=== PATIENT | female | born 1955 | race Caucasian/White ===

== ENCOUNTER 2017-11-07 17:08 | Emergency (ER) | END 2017-11-07 20:20 | disposition home or self-care (01) ==

== ENCOUNTER 2018-01-02 22:05 | Observation (INO) | END 2018-01-04 13:24 | disposition home or self-care (01) ==

== ENCOUNTER 2019-01-13 09:09 | Emergency (ER) | payer MEDICAID ==
[~2019-01-13] VITALS: Wt 78.0 kg
[~2019-01-13 09:09] MED LIST: ASPI-535 PO; ATOR-2 PO; LISI-471 PO; NITR0.4T32 SL; OMEG-135 PO; OMEG-158 PO; TURM1CAP2 PO
[2019-01-13 09:12] VITALS: Wt 78.0 kg
--- NOTE | 2019-01-13 11:04 | ERD ---
ER Documentation Chief Complaint Chief Complaint left breast rad back pain x 2 weeks. pain when touch breast HPI 63-year-old female presents the emergency department complaining of left-sided chest pain. Patient states that she has a recent history of nonspecific chest pains. She was admitted to our hospital recently where diagnostic work-up was completed including a normal echocardiogram. Patient presents the emergency department today complaining of approximately 2 weeks of a nonspecific left-sided breast and chest discomfort which radiates to her back. Its associate with tingling in her left index finger. She reports no palpitations or shortness of breath, no fevers, chills, sputum production or hemoptysis. Her pain is nonspecific and described as mild to moderate. ROS All systems reviewed and are negative except as per history of present illness. Medications Home Meds Reported Medications [place]-3 Fatty Acids/Fish Oil (Fish Oil 1,000 mg Capsule) 1 Each Capsule, 1 EACH PO DAILY, CAP 01/13/19 Lisinopril* (Lisinopril*) 20 Mg Tablet, 20 MG PO DAILY, #30 TAB 01/13/19 Atorvastatin* (Atorvastatin*) 80 Mg Tablet, 80 MG PO QHS, #30 TAB 01/13/19 Discontinued Reported Medications Turmeric/Turmeric Root Extract (Turmeric 500 mg Capsule) 1 Each Capsule, 1 EACH PO, CAP 01/02/18 [place]-3/Dha/Epa/Fish Oil (FISH OIL 1,000 MG SOFTGEL) 1 Each Capsule, 1 EACH PO, CAP 01/02/18 Atorvastatin* (Atorvastatin*) 80 Mg Tablet, 80 MG PO QHS, #30 TAB 01/02/18 Aspirin Ec (Aspir 81) 81 Mg Tablet.dr, 81 MG PO DAILY, #30 TAB 01/02/18 Lisinopril* (Lisinopril*) 20 Mg Tablet, 20 MG PO DAILY, #30 TAB 01/02/18 Discontinued Scripts Nitroglycerin* (Nitroglycerin* SL) 0.4 Mg Tab.subl, 1 TAB SL .Q5M UP TO 3 DOSES PRN for CHEST PAIN for 30 Days, #90 TAB 3 Refills Prov:ANTONIA JOHNSON MD 01/04/18 Allergies Allergies: Coded Allergies: No Known Allergy (Unverified , 01/13/19) PMhx/Soc History of Surgery: Yes (HYSTERECTOMY) Anesthesia Reaction: No Hx Neurological Disorder: No Hx Respiratory Disorders: No Hx Cardiac Disorders: Yes (HIGH CHOLESTEROL;HTN;) Hx Psychiatric Problems: No Hx Miscellaneous Medical Probl: No Hx Alcohol Use: No Hx Substance Use: No Hx Tobacco Use: No Smoking Status: Never smoker FmHx Noncontributory for chief complaint Physical Exam Vitals Vital Signs Date Temp Pulse Resp B/P (MAP) Pulse Ox O2 O2 Flow FiO2 Time Delivery Rate 01/13/19 98.1 69 18 171/89 99 09:12 (116) Physical Exam GENERAL: The patient is well developed and appropriate for usual state of health in no apparent distress HEENT: Pupils equal, round, and reactive to light. EOMI. There is no scleral icterus. NECK: C-spine is soft and supple, there is no meningismus. There is no cervical lymphadenopathy. LUNGS: Clear to auscultation bilaterally. There are no rales, wheezes or rhonchi. HEART: Regular rate and rhythm, no murmurs, clicks, rubs or gallops. ABDOMEN: Soft, non-tender, non-distended. There are bowel sounds in all four quadrants. No rebound or guarding. EXTREMITIES: There is no peripheral cyanosis or edema. No focal swelling or erythema. NEURO: The patient moves all four extremities with 5/5 strength. Cranial nerves II - XII are intact. Normal gait. Alert and oriented SKIN: There is no apparent rash or petechiae. HEME/LYMPHATIC: There is no evidence of excessive bruising or lymphedema. PSYCHIATRIC: The patient does not appear anxious or depressed. Result Diagram: 01/13/19 1017 01/13/19 1017 Results 24 hrs Laboratory Tests Test 01/13/19 10:17 White Blood Count 6.7 10^3/ul Red Blood Count 3.75 10^6/ul Hemoglobin 12.6 g/dl Hematocrit 36.5 % Mean Corpuscular Volume 97.3 fl Mean Corpuscular Hemoglobin 33.6 pg Mean Corpuscular Hemoglobin Concent 34.5 g/dl Red Cell Distribution Width 12.1 % Platelet Count 274 10^3/UL Mean Platelet Volume 9.1 fl Immature Granulocytes % 0.300 % Neutrophils % 54.9 % Lymphocytes % 32.7 % Monocytes % 9.9 % Eosinophils % 1.6 % Basophils % 0.6 % Nucleated Red Blood Cells % 0.0 /100WBC Immature Granulocytes # 0.020 10^3/ul Neutrophils # 3.7 10^3/ul Lymphocytes # 2.2 10^3/ul Monocytes # 0.7 10^3/ul Eosinophils # 0.1 10^3/ul Basophils # 0.0 10^3/ul Nucleated Red Blood Cells # 0.0 10^3/ul Sodium Level 139 mmol/L Potassium Level 3.9 mmol/L Chloride Level 103 mmol/L Carbon Dioxide Level 30 mmol/L Anion Gap 6 Blood Urea Nitrogen 13 mg/dl Creatinine 0.57 mg/dl Est Glomerular Filtrat Rate mL/min > 60 mL/min Glucose Level 104 mg/dl Calcium Level 9.7 mg/dl Troponin I < 0.012 ng/ml Procedures/MDM Patient was taken to a room, seen and evaluated. Comfort measures were initiated. Diagnostic tests were ordered and reviewed. 3 LEAD RHYTHM STRIP: Normal sinus rhythm without ectopy EK lead EKG reviewed by myself: Normal Sinus Rhythm Normal [place] and intervals No ST elevation, depression, or T wave inversion Impression: Normal EKG REEVALUATION: 1100: Diagnostic tests were appreciated. Patient remained comfo rtable and stable appearing. MEDICAL DECISION MAKING: Patient presents with chest pain of uncertain etiology. Differential diagnosis considered includes acute myocardial infarction, pulmonary embolism, as well as vascular and pulmonary concerns. I have reviewed the patients clinical risk factors, EKG, lab studies and imaging. At this time, given the chronic nature of the discomfort with a negative troponin and a recent negative work-up, this seems very unlikely to be cardiac related. Patient's been reassured and heard back to her primary care doctor for further evaluation. Departure Diagnosis: Primary Impression: Chest pain Condition: Stable Patient Instructions: Chest Pain, Uncertain Cause Additional Instructions: Consulte a lawrence mdico para el seguimiento segn lo discutido. Lleve lisa copia de los resultados de lawrence prueba, si corresponde, a esta visita de seguimiento. Consulte a lawrence mdico o regrese aqu si nelson sntomas no mejoran piter se esperaba. En cualquier momento, regrese al departamento de emergencias por cualquier cambio o empeoramiento en nelson sntomas. DM NAVARRO Jan 13, 2019 11:04
[2019-01-13 11:16] VITALS: BP 156/68; PULSE 69; RESP 18
== END 2019-01-13 11:20 | disposition home or self-care (01) ==
LOC: E/R 09:09
DX: R07.9 Chest pain, unspecified (principal); I10 Essential (primary) hypertension; Z79.82 Long term (current) use of aspirin
CPT/HCPCS: 36415; 80048; 84484; 85025; 93005; Z7502